=== PATIENT | female | born 1980 | race Caucasian/White ===

== ENCOUNTER 2016-09-14 20:50 | Emergency (ER) | payer SELFPAY ==
[2016-09-14 21:29] VITALS: BP 118/73
--- NOTE | 2016-09-16 13:44 | ED Elopement Review ---
ED Pt Elopement review - Call Back decision Pt Call Back Decision: No action required
== END 2016-09-14 21:40 | disposition left against medical advice (07) ==
LOC: ED 20:50
DX: R53.1 Weakness (principal); Z53.21 Procedure and treatment not carried out due to patient leaving prior to being seen by health care provider

== ENCOUNTER 2016-09-19 17:07 | Emergency (ER) | payer SELFPAY ==
--- NOTE | 2016-09-19 20:38 | Emergency Department Report ---
HPI - General Chief Complaint: Recheck/Abnormal Lab/Rx Time Seen by Provider: 09/19/16 19:44 - HPI HPI: 36 y.o female presents to ED stay and she had a positive test at home and wanted to be assessed for an [employer] personal job. Patient states she last menstrual period was 07/13/2016. The patient states she had a positive test at home. Patient states she had an episode of bleeding and 09/06/2016 at less than 3 days with some clotting. Patient says when she went to clinic back [facility] her original [facility], the test was positive so she believes she is . Patient denies fevers/chills/nausea/vomiting/abdominal pain/dysuria/vaginal bleeding/vaginal discharge/shortness of breath/chest pain. ED Past Medical Hx - Past Medical History Previous Medical History?: No - Surgical History Past Surgical History?: No - Social History Smoking Status: Never Smoker Substance Use Type: None ED Review of Systems ROS: Stated complaint: POSSIBLE Other details as noted in HPI Constitutional: denies: chills, fever Eyes: denies: eye pain, eye discharge, vision change ENT: denies: ear pain, throat pain, dental pain, hearing loss, congestion Respiratory: denies: cough, shortness of breath, wheezing Cardiovascular: denies: chest pain, palpitations Endocrine: no symptoms reported. denies: flushing, intolerance to cold Gastrointestinal: denies: abdominal pain, nausea, vomiting, diarrhea Genitourinary: denies: urgency, dysuria, discharge Musculoskeletal: denies: back pain, joint swelling, arthralgia Skin: denies: rash, lesions Neurological: denies: headache, weakness, paresthesias Psychiatric: denies: anxiety, depression Hematological/Lymphatic: denies: easy bleeding, easy bruising Physical Exam - Physical Exam Vital Signs: Vital Signs 09/19/16 17:27 Temperature 98.7 F Pulse Rate 85 Respiratory 18 Rate Blood Pressure 127/90 O2 Sat by Pulse 99 Oximetry Physical Exam: GENERAL: Alert and oriented x3, no apparent distress, Normal Gait, atraumatic. HEAD: Head is normocephalic and a-traumatic. EYES: Extra ocular muscles are intact. Pupils are equal, round, and reactive to light and accommodation. NECK: Supple. Non edematous, No carotid bruits. No lymphadenopathy or thyromegaly. LUNGS: Symetrical with respiration, No wheezing, no rales or crackles, CTAB. HEART: S1, S2 present, regular rate and rhythm without murmur, no rubs, no gallops. ABDOMEN: No organomegaly was noted,Positive bowel sounds, soft, and non- distended. Nontender to palpation on all Quadrants, NO CVA tenderness. NEUROLOGIC: No focal Deficit, Cranial nerves II through XII are grossly intact. No loss of sensation, PSYCHIATRIC: Mood is congruent with affect, denies suicidal or homicidal ideations. SKIN: Warm and dry, No lesions, No ulceration or induration present. ED Course Vital Signs 09/19/16 17:27 Temperature 98.7 F Pulse Rate 85 Respiratory 18 Rate Blood Pressure 127/90 O2 Sat by Pulse 99 Oximetry ED Medical Decision Making - Medical Decision Making 36-year-old presents to the ED for Conformation of ED course: Urine test ordered impressed test negative. Patient states she thinks she is and would like the blood work done. Serum qualitative and quantitative ordered. Serum qualitative negative, serum quantitative 0.6. Discussed findings with patient. I asked with patient possibility of early miscarriage in August. Due to the episode of bleeding she had September 06 Discussed [facility] referrals Vital signs stable. Patient is in no acute or respiratory distress Critical care attestation.: If time is entered above; I have spent that time in minutes in the direct care of this critically ill patient, excluding procedure time. ED Disposition Clinical Impression: test negative Disposition: DISCHARGED TO HOME OR SELFCARE Is pt being admited?: No Does the pt Need Aspirin: No Condition: Stable Instructions: (ED), Uterine Fibroids (ED) Additional Instructions: Follow-up up with [facility]. Call referrals to make an appointment to be seen tomorrow. Referrals: PRIMARY CARE, [Primary Care Provider] - 3-5 Days DEREK MEZA MD [Referring] - 3-5 Days CHRISTOPHER MEZA MD [Referring] - 3-5 Days LICO THORNE MD [Referring] - 3-5 Days CAROLINE RUSSO MD [Referring] - 3-5 Days SABINA MCKENZIE MD [Staff Physician] - 3-5 Days Forms: Work/School Release Form(ED) Time of Disposition: 21:45
[2016-09-19 21:53] VITALS: BP 122/88
== END 2016-09-19 21:57 | disposition home or self-care (01) ==
LOC: ED 17:07
DX: Z32.02 Encounter for pregnancy test, result negative (principal); N93.9 Abnormal uterine and vaginal bleeding, unspecified
CPT/HCPCS: 36415; 81025; 84702; 84703; 99283